=== PATIENT | male | born 1975 | race Caucasian/White ===

== ENCOUNTER 2020-01-26 20:57 | Emergency (ER) | payer OTHER ==
[~2020-01-26] VITALS: Ht 180.3 cm; Wt 107.0 kg
[2020-01-26] MEDS ORDERED: LISI-607 PO (21:07)
[2020-01-26] MEDS ORDERED: HYDR-4354 PO (21:07)
--- NOTE | 2020-01-26 21:17 | NUR ---
at bedside for assessment
--- NOTE | 2020-01-26 21:38 | NUR ---
radiology noted in the room at this time for chest X-ray
--- NOTE | 2020-01-26 21:43 | NUR ---
Lab noted drawing blood at this time
[2020-01-26 21:55] LABS: BASOPHILS # (AUTO) 0.1 K/uL (0.0-8.0); BASOPHILS % (AUTO) 1.5 % (0.0-2.0); EOSINOPHILS # (AUTO) 0.2 K/uL (0.0-0.7); HEMATOCRIT 46.6 % (36.7-47.1); HEMOGLOBIN 16.2 g/dL (12.5-16.3); LYMPHOCYTES # (AUTO) 2.8 K/uL (20.0-40.0); LYMPHOCYTES % (AUTO) 30.8 % (20.5-51.5); MEAN CORPUSCULAR HEMOGLOBIN 30.4 uug (23.8-33.4); MEAN CORPUSCULAR HGB CONC 35 g/dL (32.5-36.3); MEAN CORPUSCULAR VOLUME 87.5 fL (73.0-96.2); MONOCYTES # (AUTO) 0.5 K/uL (2.0-10.0); MONOCYTES % (AUTO) 5.6 % (0.0-11.0); NEUTROPHILS # (AUTO) 5.5 K/uL (1.8-8.9); NEUTROPHILS % (AUTO) 60.1 % (38.5-71.5); PLATELET COUNT (AUTO) 201 K/uL (152-348); RED BLOOD CELL COUNT(AUTO) 5.32 MIL/uL (4.06-5.63); WHITE BLOOD COUNT (AUTO) 9.1 K/uL (3.6-10.2)
[2020-01-26 22:00] LABS: CREATININE 0.9 mg/dL (0.6-1.3); POTASSIUM 3.8 mmol/L (3.5-5.1)
[2020-01-26] MEDS ORDERED: FAMOTIDINE 20 MG TABLET PO ONE (22:00)
[2020-01-26] MEDS ORDERED: FAMOTIDINE 20 MG TABLET ONE (22:01)
[2020-01-26 22:06] LABS: BILIRUBIN,DIRECT 0.1 mg/dL (0.0-0.2); BILIRUBIN,TOTAL 0.2 mg/dL (0.2-1.0); TOTAL PROTEIN, SERUM 7.6 g/dL (6.4-8.2)
[2020-01-26 22:14] LABS: THYROID STIMULATING HORMONE 1.525 mIU/mL (0.358-3.740)
[2020-01-26] MEDS ORDERED: IOHEXOL 300MG/ML 100 ML INFUS..BTL ONE (22:57)
--- NOTE | 2020-01-26 23:07 | NUR ---
Radiology noted taking patient to get CT of Neck
--- NOTE | 2020-01-27 00:43 | NUR ---
Patient discharged to home in stable condition. Took all belongings, no signs of acute distress. Written and verbal after care instructions given. Patient verbalizes understanding of instructions. Stressed follow up or return to ER for worsening s/s.
[2020-01-27 00:48] VITALS: BP 146/92
== END 2020-01-27 00:50 | disposition home or self-care (01) ==
LOC: ER 20:59
DX: R59.0 Localized enlarged lymph nodes (principal); Z85.820 Personal history of malignant melanoma of skin; F17.210 Nicotine dependence, cigarettes, uncomplicated; R03.0 Elevated blood-pressure reading, without diagnosis of hypertension
CPT/HCPCS: 36415; 70360; 70491; 71045; 80048; 80076; 84443; 85025; 93005; 99285; Q9967; A4663

== ENCOUNTER 2020-12-12 18:42 | Emergency (ER) | payer SELFPAY ==
[~2020-12-12] VITALS: Ht 180.3 cm; Wt 104.3 kg
[~2020-12-12 18:42] MED LIST: HYDR-4354 PO; LISI-782 PO
[2020-12-12] MEDS ORDERED: LISI20TA30 PO (18:56)
[2020-12-12] MEDS ORDERED: PANT40TA49 PO (18:56)
--- NOTE | 2020-12-12 19:08 | NUR ---
Dr. Tyson at bedside, MSE in progress.
[2020-12-12 19:58] LABS: MEAN CORPUSCULAR HEMOGLOBIN 30.4 uug (23.8-33.4); MEAN CORPUSCULAR VOLUME 86.9 fL (73.0-96.2); PLATELET COUNT (AUTO) 202 K/uL (152-348)
[2020-12-12 20:04] LABS: CREATININE 0.7 mg/dL (0.6-1.3); POTASSIUM 3.9 mmol/L (3.5-5.1)
[2020-12-12 20:09] LABS: BILIRUBIN,DIRECT 0.1 mg/dL (0.0-0.2); BILIRUBIN,TOTAL 0.5 mg/dL (0.2-1.0); TOTAL PROTEIN, SERUM 7.5 g/dL (6.4-8.2)
--- NOTE | 2020-12-12 21:15 | NUR ---
Patient discharged to home in stable condition. A/O X4, no SOB or labored breathing. Denies any pain/discomfort at this time. Written and verbal after care instructions given. Patient verbalizes understanding of instructions. Stressed follow up or return to ER for worsening s/s. Steady gait, picked up by family memeber.
[2020-12-12 21:29] VITALS: BP 142/86
== END 2020-12-12 21:18 | disposition home or self-care (01) ==
LOC: ER 18:43
DX: K21.9 Gastro-esophageal reflux disease without esophagitis (principal); I45.10 Unspecified right bundle-branch block; I10 Essential (primary) hypertension; F17.210 Nicotine dependence, cigarettes, uncomplicated; Z85.820 Personal history of malignant melanoma of skin; Z90.49 Acquired absence of other specified parts of digestive tract; Z79.899 Other long term (current) drug therapy
CPT/HCPCS: 36415; 70030-TC; 83735; 85025; 93005; A4663

== ENCOUNTER 2022-02-04 14:13 | Emergency (ER) | payer BC ==
[~2022-02-04] VITALS: Ht 182.9 cm; Wt 108.9 kg
[~2022-02-04 14:13] MED LIST changes: -HYDR-4354 PO; -LISI-782 PO; +LISI20TA30 PO; +PANT40TA49 PO
[2022-02-04] MEDS ORDERED: METO50TA16 PO (14:41)
--- NOTE | 2022-02-04 14:50 | NUR ---
Pt arrived with c/o "feels/hears like there's clicking" on his throat when laying down, swallowing and breathing. Pt has hx of HTN, with cardiac stent. Pt also stated that he's a smoker. Denies coughing, pain in the chest, breathing even and unlabored. Seen by Dr. Lucio for MSE. Upon auscultation by ERMD, wheezing on the RL posterior chest was heard.
[2022-02-04 15:32] VITALS: BP 138/86
--- NOTE | 2022-02-04 15:32 | NUR ---
Pt discharged to home in stable condition. Written and verbal after care instructions given. Pt verbalizes understanding of instructions. Stressed follow up or return to ER for worsening s/s.
== END 2022-02-04 15:30 | disposition home or self-care (01) ==
LOC: ER 14:13
DX: R09.89 Other specified symptoms and signs involving the circulatory and respiratory systems (principal); Z95.5 Presence of coronary angioplasty implant and graft; Z85.820 Personal history of malignant melanoma of skin; Z87.891 Personal history of nicotine dependence; I10 Essential (primary) hypertension; I25.10 Atherosclerotic heart disease of native coronary artery without angina pectoris; Z79.899 Other long term (current) drug therapy
CPT/HCPCS: 71045; A4663

== ENCOUNTER 2023-10-01 11:07 | Emergency (ER) | payer SELFPAY ==
[~2023-10-01] VITALS: Ht 180.3 cm; Wt 106.6 kg
[~2023-10-01 11:07] MED LIST changes: -LISI20TA30 PO; +METO50TA16 PO; -PANT40TA49 PO
[2023-10-01] MEDS ORDERED: HYDR-4676 PO (11:22)
[2023-10-01] MEDS ORDERED: ASPI81TA31 PO (11:22)
[2023-10-01 11:33] LABS: BASOPHILS # (AUTO) 0.1 K/UL (0.0-0.2); EOSINOPHILS % (AUTO) 0.5 % (0.0-7.0); HEMATOCRIT 51.7 % (36.7-47.1); HEMOGLOBIN 17.6 g/dL (12.5-16.3); LYMPHOCYTES # (AUTO) 1.9 K/uL (0.8-4.8); LYMPHOCYTES % (AUTO) 27.2 % (20.5-51.5); MEAN CORPUSCULAR HEMOGLOBIN 30.3 uug (23.8-33.4); MEAN CORPUSCULAR HGB CONC 34 g/dL (32.5-36.3); MONOCYTES # (AUTO) 0.3 K/uL (0.1-1.30); MONOCYTES % (AUTO) 4.9 % (0.0-11.0); NEUTROPHILS # (AUTO) 4.6 K/uL (1.8-8.9); NEUTROPHILS % (AUTO) 66.4 % (38.5-71.5); PLATELET COUNT (AUTO) 169 K/uL (152-348); RED BLOOD CELL COUNT(AUTO) 5.81 MIL/uL (4.06-5.63); RED CELL DISTRIBUTION WIDTH 13.2 % (12.1-16.2)
[2023-10-01 11:35] LABS: DIFFERENTIAL COMMENT 1
[2023-10-01 11:42] LABS: CALCIUM 9.7 mg/dL (8.5-10.1); CARBON DIOXIDE 23 mmol/L (21-32); CHLORIDE 104 mmol/L (98-107); CREATININE 0.8 mg/dL (0.6-1.3); GLUCOSE 139 mg/dL (74-106); POTASSIUM 4.4 mmol/L (3.5-5.1); SODIUM SERUM 138 mmol/L (136-145); UREA NITROGEN, BLOOD 13 mg/dL (7-18)
[2023-10-01 11:56] LABS: ALANINE AMINOTRANSFERASE 31 U/L (16-63); ALBUMIN 4.3 g/dL (3.4-5.0); ALKALINE PHOSPHATASE 52 U/L (50-136); ASPARTATE AMINOTRANSFERASE 8 U/L (15-37); BILIRUBIN,DIRECT 0.1 mg/dL (0.0-0.2); BILIRUBIN,TOTAL 0.4 mg/dL (0.2-1.0); NT-PRO BNP 8 pg/mL (0-125); TOTAL PROTEIN, SERUM 7.8 g/dL (6.4-8.2)
[2023-10-01] MEDS ORDERED: ASPIRIN 81 MG TAB.CHEW ONE (13:01)
[2023-10-01] MEDS ORDERED: NITROGLYCERIN OINT 1 GM PACKET TP ONE (13:01)
[2023-10-01] MEDS ORDERED: ENOXAPARIN SODIUM 100 MG/ML DISP.SYRIN SQ ONE (13:02)
[2023-10-01] MEDS: ASPIRIN 81 MG TAB.CHEW PO ONE (13:11)
[2023-10-01] MEDS: NITROGLYCERIN OINT 1 GM PACKET TP ONE (13:11)
[2023-10-01] MEDS: ENOXAPARIN SODIUM 100 MG/ML DISP.SYRIN SQ ONE (13:21)
[2023-10-01 14:14] VITALS: BP 134/81; TEMP 98.1; O2SAT 98
== END 2023-10-01 14:16 | disposition home or self-care (01) ==
LOC: ER 11:14
DX: I20.0 Unstable angina (principal); Z98.890 Other specified postprocedural states; Z90.49 Acquired absence of other specified parts of digestive tract; Z79.899 Other long term (current) drug therapy
CPT/HCPCS: 99291; 80076; 80048; 83880; 85025; 85379; 85730; 84484; 36415; 93005; 71045; 96372; J1650; A4606; A4663

== ENCOUNTER 2024-04-13 14:07 | Emergency (ER) | payer BC ==
[~2024-04-13] VITALS: Ht 182.9 cm; Wt 107.0 kg
[~2024-04-13 14:07] MED LIST changes: +ASPI81TA31 PO; +HYDR-4676 PO
[2024-04-13 15:07] LABS: BASOPHILS # (AUTO) 0.1 K/UL (0.0-0.2); EOSINOPHILS % (AUTO) 0.6 % (0.0-7.0); HEMATOCRIT 45.8 % (36.7-47.1); HEMOGLOBIN 16.3 g/dL (12.5-16.3); LYMPHOCYTES # (AUTO) 2.3 K/uL (0.8-4.8); LYMPHOCYTES % (AUTO) 28.8 % (20.5-51.5); MEAN CORPUSCULAR HEMOGLOBIN 30.9 uug (23.8-33.4); MEAN CORPUSCULAR HGB CONC 36 g/dL (32.5-36.3); MEAN CORPUSCULAR VOLUME 86.9 fL (73.0-96.2); MONOCYTES # (AUTO) 0.4 K/uL (0.1-1.30); MONOCYTES % (AUTO) 4.7 % (0.0-11.0); NEUTROPHILS # (AUTO) 5.3 K/uL (1.8-8.9); NEUTROPHILS % (AUTO) 64.9 % (38.5-71.5); PLATELET COUNT (AUTO) 190 K/uL (152-348); RED BLOOD CELL COUNT(AUTO) 5.27 MIL/uL (4.06-5.63); RED CELL DISTRIBUTION WIDTH 13.9 % (12.1-16.2); WHITE BLOOD COUNT (AUTO) 8.1 K/uL (3.6-10.2)
[2024-04-13 15:14] LABS: DIFFERENTIAL COMMENT 1
[2024-04-13 15:16] LABS: CALCIUM 8.9 mg/dL (8.5-10.1); CARBON DIOXIDE 23 mmol/L (21-32); CHLORIDE 105 mmol/L (98-107); CREATININE 0.7 mg/dL (0.6-1.3); GLUCOSE 112 mg/dL (74-106); POTASSIUM 4.1 mmol/L (3.5-5.1); SODIUM SERUM 142 mmol/L (136-145); UREA NITROGEN, BLOOD 9 mg/dL (7-18)
[2024-04-13 15:30] LABS: ALANINE AMINOTRANSFERASE 28 U/L (16-63); ALBUMIN 4.1 g/dL (3.4-5.0); ALKALINE PHOSPHATASE 51 U/L (50-136); ASPARTATE AMINOTRANSFERASE 15 U/L (15-37); BILIRUBIN,DIRECT 0.1 mg/dL (0.0-0.2); BILIRUBIN,TOTAL 0.4 mg/dL (0.2-1.0); TOTAL PROTEIN, SERUM 7.7 g/dL (6.4-8.2)
[2024-04-13 15:33] LABS: NT-PRO BNP 5 pg/mL (0-125)
[2024-04-13] MEDS ORDERED: IV NORMAL SALINE 250 ML IV ONE (15:53)
[2024-04-13] MEDS ORDERED: IOHEXOL 350 100 ML INFUS..BTL ONE (15:53)
[2024-04-13] MEDS ORDERED: SWABABLE VALVE TRANSFER SET EA MC ONE (15:53)
[2024-04-13 18:45] VITALS: BP 162/107; O2SAT 98
== END 2024-04-13 18:51 | disposition home or self-care (01) ==
LOC: ER 14:07
DX: R07.89 Other chest pain (principal); R06.03 Acute respiratory distress; I11.9 Hypertensive heart disease without heart failure; I25.10 Atherosclerotic heart disease of native coronary artery without angina pectoris; Z79.82 Long term (current) use of aspirin; Z79.899 Other long term (current) drug therapy; Z85.820 Personal history of malignant melanoma of skin; Z87.891 Personal history of nicotine dependence; Z95.5 Presence of coronary angioplasty implant and graft
CPT/HCPCS: 99285; 71275; 71045; 80076; 80048; 83880; 85025; 85379; 85730; 84484 ×2; 36415; 93005; Q9967; A4606; A4663